=== PATIENT | female | born 2000 | race Caucasian/White ===

== ENCOUNTER 2019-05-10 22:36 | Emergency (ER) | payer OTHER, SELFPAY ==
[2019-05-10 22:37] VITALS: BP 144/74; PULSE 99; RESP 13; TEMP 36.6; O2SAT 99; BMI 35.4
--- NOTE | 2019-05-10 22:49 | ED.VISSUMM ---
- ER Visit Summary Date of Service: 05/10/19 Chief Complaint: Bee sting History of Present Illness: The patient is a 18 F who states that she is allergic to certain types of bee stings. Approximately 45 minutes prior to examination the patient was stung by yellow jacket her left periorbital region. She took a Benadryl and ice the area. She continued to have swelling and now the eye is closing shot. She denies any respiratory or oropharyngeal symptoms. No diffuse hives. She is not itching. Physical Examination: Afebrile vital signs stable Gen: Well-nourished well-developed Head: Normocephalic atraumatic Eyes: Perrl EOMI there is left perioral edema. I do not see any stinger. ENT: TMs clear no rhinorrhea moist mucous membranes no oral pharyngeal swelling Neck: Supple no lymphadenopathy no JVD nontender CVS: Regular rate rhythm no murmurs normal S1-S2 Respiratory: No distress clear to auscultation bilaterally chest nontender Abdomen: Soft nontender nondistended normal bowel sounds no masses Back: Nontender Extremity: Nontender no edema Skin: Normal color no rash specifically no hives Neuro: alert orientated ?3 CN II-XII intact normal strength sensation reflexes gait cerebellar Psych: Normal affect normal mood Emergency Department Course and Treatment: Patient is Darell taken a Benadryl. I will give her an additional dose of Pepcid and an injection of Kenalog. Patient is to return if worsening or any concerns. At this point I do not see any systemic symptoms this appears to be a local reaction. Impression: 1. Bee sting-local reaction This note was generated with [employer] dictation software. It may contain incorrect words, spelling, and punctuation that were not noted in review of the chart prior to signing ED Disposition - Plan for ED Patient: Disposition: Home or Assisted Living Instructions: ALLERGIC REACTION, Insect (Local) Referrals: [facility] [GROUP OF PHYSICIANS] - As Needed Additional Instructions: I recommend ice to the area Take a Benadryl tablet every 6 hours unless you become too sedated Pepcid 20 mg twice a day until symptoms resolve Return if worsening or any concerns
[2019-05-10 22:50] VITALS: RESP 16
[2019-05-10] MEDS: Triamcinolone Acetonide 40 MG/ML Vial IM (22:55)
[2019-05-10] MEDS: Famotidine 20 MG Tablet PO (22:55)
[2019-05-10 23:18] VITALS: RESP 16
== END 2019-05-10 23:19 | disposition home or self-care (01) ==
PROVIDERS: Emergency Provider Emergency Medicine
DX: T63.441A Toxic effect of venom of bees, accidental (unintentional), initial encounter (principal); R22.0 Localized swelling, mass and lump, head
CPT/HCPCS: 96372; 99282; A4216